=== PATIENT | female | born 1945 | race Caucasian/White ===

== ENCOUNTER 2017-01-28 13:08 | Emergency (ER) | payer MEDICARE, OTHER ==
[2017-01-28 13:24] VITALS: BP 132/74
--- NOTE | 2017-01-28 13:36 | ED Physician Documentation ---
History of Present Illness - Stated complaint Stated Complaint: SUTURE REMOVAL - Chief complaint Chief Complaint: Ext Problem - History obtained from History obtained from: Patient - History of Present Illness Improved by: nothing Worsened by: nothing - Additonal information Additional information: Patient is a 71-year-old female who states that she had sutures placed in the right knee approximately 11 days ago after a fall. No complaints. No pain. No drainage. No fevers. Here for suture removal Review of Systems Constitutional: denies: Fever PD PAST MEDICAL HISTORY - Past Medical History Past Medical History: Yes Cardiovascular: Hypertension, High cholesterol Other Past Medical History: rheumatoid arthritis - Present Medications Home Medications: Ambulatory Orders Medication Instructions Recorded Confirmed Atorvastatin [Lipitor] 5 mg DAILY 07/08/16 01/28/17 Hydrochloroquin 200 mg BID 07/08/16 01/28/17 Levothyroxine Sodium [Synthroid] 50 mcg PO DAILY 07/08/16 01/28/17 Losartan/Hydrochlorothiazide 1 tab DAILY 07/08/16 01/28/17 [Losartan-Hctz 100-25 mg Tab] Prednisone 5 mg PO DAILY 07/08/16 01/28/17 diltiaZEM CD [Cardizem Cd] 240 mg DAILY 07/08/16 01/28/17 oxyCODONE [Roxicodone] 1 tab TID 07/08/16 01/28/17 Abatacept [Orencia] 50 mg IV OAW 01/28/17 01/28/17 - Allergies Allergies/Adverse Reactions: Allergies Allergy/AdvReac Type Severity Reaction Status Date / Time etodolac Allergy Unknown Verified 07/08/16 14:20 metronidazole [From Flagyl] Allergy Unknown Verified 07/08/16 14:20 - Social History Does the pt smoke?: No Smoking Status: Never smoker PD ED PE NORMAL - Vitals Vital signs reviewed: Yes - General General: Alert and oriented X 3, No acute distress - Derm Derm: Warm and dry - Extremities Extremities: Other (R knee - [address] without signs of infection.) - Neuro Neuro: Alert and oriented X 3 Results - Vitals Vitals: Vital Signs - 24 hr 01/28/17 13:22 Temperature 36.8 C Heart Rate 71 Respiratory 18 Rate Blood Pressure 132/74 H O2 Saturation 98 Oxygen O2 Source Room air PD MEDICAL DECISION MAKING - ED course Complexity details: considered differential, d/w family ED course: Sutures removed in the emergency department. Tolerated well. Steri-Strips and bandage applied. No signs of infection. Warnings of infection and instructions on wound care given at bedside. Also counseled on how to minimize scarring. Patient counseled regarding signs and symptoms for which I believe and urgent re-evaluation would be necessary. Patient with good understanding of and agreement to plan and is comfortable going home at this time This document was made in part using voice recognition software. While efforts are made to proofread this document, sound alike and grammatical errors may occur. Departure - Departure Disposition: 01 Home, Self Care Clinical Impression: Visit for suture removal Condition: Good Instructions: ED Wound Check Sutr Remove No Infec Follow-Up: Amber Sharma MD [Primary Care Provider] - As Needed Comments: Return if you worsen. This should continue to heal over the next few days. Discharge Date/Time: 01/28/17 13:56
== END 2017-01-28 13:56 | disposition home or self-care (01) ==
LOC: ED 13:08
DX: S81.011D Laceration without foreign body, right knee, subsequent encounter (principal); W19.XXXD Unspecified fall, subsequent encounter
CPT/HCPCS: 99281; 99282

== ENCOUNTER 2017-01-30 14:20 | Emergency (ER) | payer MEDICARE, OTHER ==
[2017-01-30 14:37] VITALS: BP 125/83
--- NOTE | 2017-01-30 17:00 | ED Physician Documentation ---
History of Present Illness - Stated complaint Stated Complaint: WOUND CHECK - Chief complaint Chief Complaint: Wound - Additonal information Additional information: hx from patient 71 female knee lac was sutured then sutures were removed now wound had dehisced and is leaking serosanguinous fluid hx total knee on meds for RA which cause her to heal slowly Review of Systems Skin: reports: Laceration (s) PD PAST MEDICAL HISTORY - Past Medical History Cardiovascular: Hypertension, High cholesterol - Present Medications Home Medications: Ambulatory Orders Medication Instructions Recorded Confirmed Atorvastatin [Lipitor] 5 mg DAILY 07/08/16 01/28/17 Hydrochloroquin 200 mg BID 07/08/16 01/28/17 Levothyroxine Sodium [Synthroid] 50 mcg PO DAILY 07/08/16 01/28/17 Losartan/Hydrochlorothiazide 1 tab DAILY 07/08/16 01/28/17 [Losartan-Hctz 100-25 mg Tab] Prednisone 5 mg PO DAILY 07/08/16 01/28/17 diltiaZEM CD [Cardizem Cd] 240 mg DAILY 07/08/16 01/28/17 oxyCODONE [Roxicodone] 1 tab TID 07/08/16 01/28/17 Abatacept [Orencia] 50 mg IV OAW 01/28/17 01/28/17 - Allergies Allergies/Adverse Reactions: Allergies Allergy/AdvReac Type Severity Reaction Status Date / Time etodolac Allergy Unknown Verified 01/30/17 14:38 metronidazole [From Flagyl] Allergy Unknown Verified 01/30/17 14:38 - Social History Does the pt smoke?: No Smoking Status: Never smoker PD ED PE NORMAL - Vitals Vital signs reviewed: Yes - Extremities Extremities: Other (R knee - aged lac with heaing wound edges but dehsices, no joint capsule or patellar tendon visible, small amt clear fluid, no erythema, full ROM) Results - Vitals Vitals: Vital Signs - 24 hr 01/30/17 14:35 Temperature 37.3 C Heart Rate 75 Respiratory 14 Rate Blood Pressure 125/83 H O2 Saturation 100 Oxygen O2 Source Room air PD MEDICAL DECISION MAKING - ED course ED course: mi feliciano Departure - Departure Disposition: 01 Home, Self Care Clinical Impression: Wound dehiscence Condition: Good Comments: The wound cannot be re-sutured or glued at this time It will need to heal by secondary intention from the bottom up. Right now the wound does not appear infected - if the drainage become purulent or redness develops around the wound please come back
[2017-01-30] MEDS ORDERED: BENZOIN COMPOUND TOP ONE (17:59)
== END 2017-01-30 18:11 | disposition home or self-care (01) ==
LOC: ED 14:20
DX: T81.31XA Disruption of external operation (surgical) wound, not elsewhere classified, initial encounter (principal); Y83.8 Other surgical procedures as the cause of abnormal reaction of the patient, or of later complication, without mention of misadventure at the time of the procedure; I10 Essential (primary) hypertension
CPT/HCPCS: 99281; 99283

== ENCOUNTER 2017-08-22 17:12 | Emergency (ER) | payer MEDICARE, OTHER ==
[2017-08-22] MEDS ORDERED: cefTRIAXone 1 GM VIAL IM STA (18:08)
[2017-08-22] MEDS ORDERED: LIDOCAINE 1% 2 ML VIAL SUBQ ONE (18:08)
--- NOTE | 2017-08-22 18:08 | ED Physician Documentation ---
History of Present Illness - Stated complaint Stated Complaint: SP SX, LT LEG, INFECTION - Chief complaint Chief Complaint: Ext Problem - Additonal information Additional information: hx from pt 71 female slightly immunocompromised from her meds (orencia and prednsione) had mohs surgery for skin cancer a week ago in [place] on keflex wounds are now infected painful red swollen and some purlent dc from between sutures has appt with her surgical team tomorrow but told to come to [facility] for wound eval Review of Systems Constitutional: denies: Fever Skin: reports: Other (infected surgical wound) PD PAST MEDICAL HISTORY - Past Medical History Past Medical History: Yes Cardiovascular: Hypertension, High cholesterol Other Past Medical History: Squamous cell carcinoma - Past Surgical History Past Surgical History: Yes Derm: Skin cancer surgery - Present Medications Home Medications: Ambulatory Orders Medication Instructions Recorded Confirmed Atorvastatin [Lipitor] 5 mg DAILY 07/08/16 01/28/17 Hydrochloroquin 200 mg BID 07/08/16 01/28/17 Levothyroxine Sodium [Synthroid] 50 mcg PO DAILY 07/08/16 01/28/17 Losartan/Hydrochlorothiazide 1 tab DAILY 07/08/16 01/28/17 [Losartan-Hctz 100-25 mg Tab] diltiaZEM CD [Cardizem Cd] 240 mg DAILY 07/08/16 01/28/17 oxyCODONE [Roxicodone] 1 tab TID 07/08/16 01/28/17 predniSONE [Prednisone] 5 mg PO DAILY 07/08/16 01/28/17 Abatacept [Orencia] 50 mg IV OAW 01/28/17 01/28/17 Clindamycin [Cleocin] 300 mg PO Q6H 7 Days capsule 08/22/17 - Allergies Allergies/Adverse Reactions: Allergies Allergy/AdvReac Type Severity Reaction Status Date / Time etodolac Allergy Unknown Verified 01/30/17 14:38 metronidazole [From Flagyl] Allergy Unknown Verified 01/30/17 14:38 - Social History Does the pt smoke?: No Smoking Status: Never smoker PD ED PE NORMAL - Vitals Vital signs reviewed: Yes - Cardiac Cardiac: RRR - Respiratory Respiratory: No respiratory distress, Clear bilaterally - Extremities Extremities: Other (two pretibial sugical incisions closed with running sutures - surrounf erythema and warmth and some edema around to lower incisions, clear to cloudy dc from upper wound and dina purulent dc and slight fluctuance to lower wound, both cultured, MSV intact) Results - Vitals Vitals: Vital Signs - 24 hr 08/22/17 17:19 Temperature 37.2 C Heart Rate 76 Respiratory 18 Rate Blood Pressure 143/78 H O2 Saturation 98 Oxygen O2 Source Room air PD MEDICAL DECISION MAKING - ED course ED course: two infected pre-tibial surgical incisions in a slightly immunocompromised pt cultured drainage will add clinda for MRSA coverage (already on keflex) (and bactrim interacts with BP meds) ideally would remove some sutures and open wound to drain but she has running sutures and I am not certain how deep or extensive the undermining for these wound is - do not have wound vac etc available in the ER at night if 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 - so will leave sutures in just for overnight until she can see her interlocking installer tomorrow pharmacies closing soon so gave rocephin 1 g IM (24 hr coverage) and a PO clinda Departure - Departure Disposition: 01 Home, Self Care Clinical Impression: Infected incision Qualifiers: Encounter type: initial encounter Qualified Code(s): T81.4XXA - Infection following a procedure, initial encounter Condition: Good Instructions: ED Wound Infec After Surgery Prescriptions: Clindamycin [Cleocin] 300 mg PO Q6H 7 Days capsule Comments: Follow up with your dermatology team tomorrow for further wound care - the sutures will likely have to be removed Wound culture results will be available within the next 1-3 days and your interlocking installer can call the ER at to get the results
[2017-08-22] MEDS ORDERED: BACITRACIN OINT TOP ONE (18:20)
[2017-08-22] MEDS ORDERED: SULFAMETH/TRIMETH DS 800/160 MG TABLET PO STA (18:37)
[2017-08-22] MEDS ORDERED: CLINDAMYCIN 150 MG CAPSULE PO STA (18:39)
[2017-08-22 18:51] VITALS: BP 148/78
== END 2017-08-22 18:51 | disposition home or self-care (01) ==
LOC: ED 17:12
DX: T81.4XXA Infection following a procedure, initial encounter (principal); Z85.828 Personal history of other malignant neoplasm of skin; I10 Essential (primary) hypertension; E78.00 Pure hypercholesterolemia, unspecified
CPT/HCPCS: 87070; 87205; 96372; 99283; A9270

== ENCOUNTER 2017-09-05 19:10 | Emergency (ER) | payer MEDICARE, OTHER ==
[2017-09-05 19:22] VITALS: BP 136/72
--- NOTE | 2017-09-05 19:34 | ED Physician Documentation ---
PD HPI LOWER EXT INJURY - Stated complaint Stated Complaint: L SWOLLEN CALF - Chief complaint Chief Complaint: Ext Problem - History obtained from History obtained from: Patient - History of Present Illness PD HPI LOW EXT INJURY LOCATION: Other (She had Mohs surgery on the left leg, became infected and she has been on Cipro for about 2 weeks for Pseudomonas. The infection is getting better but she has had progressive swelling and pain below the knee on the left and was referred in by her natural history collections curator for DVT evaluation. She has never had a DVT or PE. She denies chest pain or trouble breathing.) Review of Systems Constitutional: reports: Reviewed and negative Nose: reports: Reviewed and negative Cardiac: denies: Chest pain / pressure, Palpitations Respiratory: reports: Reviewed and negative. denies: Dyspnea, Cough PD PAST MEDICAL HISTORY - Past Medical History Cardiovascular: Hypertension, High cholesterol - Past Surgical History Past Surgical History: Yes Derm: Skin cancer surgery - Present Medications Home Medications: Ambulatory Orders Medication Instructions Recorded Confirmed Atorvastatin [Lipitor] 5 mg DAILY 07/08/16 01/28/17 Hydrochloroquin 200 mg BID 07/08/16 01/28/17 Levothyroxine Sodium [Synthroid] 50 mcg PO DAILY 07/08/16 01/28/17 Losartan/Hydrochlorothiazide 1 tab DAILY 07/08/16 01/28/17 [Losartan-Hctz 100-25 mg Tab] diltiaZEM CD [Cardizem Cd] 240 mg DAILY 07/08/16 01/28/17 oxyCODONE [Roxicodone] 1 tab TID 07/08/16 01/28/17 predniSONE [Prednisone] 5 mg PO DAILY 07/08/16 01/28/17 Abatacept [Orencia] 50 mg IV OAW 01/28/17 01/28/17 Clindamycin [Cleocin] 300 mg PO Q6H 7 Days capsule 08/22/17 - Allergies Allergies/Adverse Reactions: Allergies Allergy/AdvReac Type Severity Reaction Status Date / Time etodolac Allergy Unknown Verified 01/30/17 14:38 metronidazole [From Flagyl] Allergy Unknown Verified 01/30/17 14:38 - Social History Does the pt smoke?: No Smoking Status: Never smoker PD ED PE NORMAL - Vitals Vital signs reviewed: Yes - General General: Alert and oriented X 3, No acute distress - Extremities Extremities: Other (There is 2 healing sites on the left lower extremity, both in the anterior left infante, one upper and one lower. She does have calf tenderness below the knee and some swelling with venous stasis changes.) - Neuro Neuro: Alert and oriented X 3, Normal speech Results - Vitals Vitals: Vital Signs - 24 hr 09/05/17 19:19 Temperature 35.9 C L Heart Rate 86 Respiratory 18 Rate Blood Pressure 136/72 H O2 Saturation 99 Oxygen O2 Source Room air - Rads (name of study) LLE DVt scan Radiology: Prelim report reviewed (no DVt, +ocampo's cyst) Departure - Departure Disposition: Home, Self Care Clinical Impression: Pain of lower extremity Qualifiers: Laterality: left Qualified Code(s): M79.605 - Pain in left leg Clinical Impression: (Ruled Out): Deep vein thrombosis Condition: Good Record reviewed to determine appropriate education?: Yes Instructions: ED Cyst Ocampo Comments: Call your doctor to arrange a follow-up appointment, make the next available appointment. In the interim, return anytime if worse or if new symptoms develop. Your blood pressure was elevated today on check into the emergency department. This does not mean that you have hypertension, it is a common phenomenon to come to the emergency department and have elevated blood pressure. I recommend that you see your primary care physician within the week to have it rechecked when you are feeling better. Discharge Date/Time: 09/05/17 20:31
--- NOTE | 2017-09-05 20:31 | Ultrasound Report ---
EXAM: LEFT LOWER EXTREMITY VENOUS ULTRASOUND EXAM DATE: 09/05/2017 08:19 PM. CLINICAL HISTORY: Left lower extremity swelling. COMPARISON: None. TECHNIQUE: Real-time sonographic vascular imaging was performed by the hydraulic technician through the lower extremity utilizing both color-flow and Doppler spectral analysis. Multiple hr representative static latisha ges were saved for review. FINDINGS: Common Femoral Vein (CFV): Normal. CFV-GSV Junction: Normal. Profunda Femoral Vein (PFV): Normal. Femoral Vein (FV) Prox: Normal. Femoral Vein (FV) Mid: Normal. Femoral Vein (FV) Dist: Normal. Popliteal Vein: Normal. Posterior Tibial Veins: Limited visualization. Peroneal Veins: Normal. Other: Left Ocampo's cyst measuring 3.3 x 1.3 x 3.7 cm. IMPRESSION: No evidence for deep venous thrombosis. Limited visualization of the left posterior tibia l veins. Left Ocampo's cyst measuring 3.3 x 1.3 x 3.7 cm. [facility] Referring Provider Line: [phone] SITE ID: [id number]
== END 2017-09-05 20:31 | disposition home or self-care (01) ==
LOC: ED 19:10
DX: M79.605 Pain in left leg (principal); I10 Essential (primary) hypertension; E78.00 Pure hypercholesterolemia, unspecified
CPT/HCPCS: 99283

== ENCOUNTER 2018-04-10 11:47 | Emergency (ER) | payer MEDICARE, OTHER ==
[2018-04-10 11:56] VITALS: BP 151/72
--- NOTE | 2018-04-10 14:05 | ED Physician Documentation ---
History of Present Illness - Stated complaint Stated Complaint: LOWER LF LEG SWELLING - Chief complaint Chief Complaint: Wound - Additonal information Additional information: hx from pt 72 f skin tear L pretib - hit leg on furniture in dark at night now puffy red and painful Review of Systems Musculoskeletal: reports: Extremity pain, Extremity swelling PD PAST MEDICAL HISTORY - Past Medical History Cardiovascular: Hypertension, High cholesterol Musculoskeletal: Rheumatoid arthritis - Past Surgical History Past Surgical History: Yes Derm: Skin cancer surgery - Present Medications Home Medications: Ambulatory Orders Medication Instructions Recorded Confirmed Atorvastatin [Lipitor] 5 mg DAILY 07/08/16 01/28/17 Hydrochloroquin 200 mg BID 07/08/16 01/28/17 Levothyroxine Sodium [Synthroid] 50 mcg PO DAILY 07/08/16 01/28/17 Losartan/Hydrochlorothiazide 1 tab DAILY 07/08/16 01/28/17 [Losartan-Hctz 100-25 mg Tab] diltiaZEM CD [Cardizem Cd] 240 mg DAILY 07/08/16 01/28/17 oxyCODONE [Roxicodone] 1 tab TID 07/08/16 01/28/17 predniSONE [Prednisone] 5 mg PO DAILY 07/08/16 01/28/17 Abatacept [Orencia] 50 mg IV OAW 01/28/17 01/28/17 Clindamycin [Cleocin] 300 mg PO Q6H 7 Days capsule 08/22/17 Cephalexin [Keflex] 500 mg PO Q6H #28 capsule 04/10/18 - Allergies Allergies/Adverse Reactions: Allergies Allergy/AdvReac Type Severity Reaction Status Date / Time etodolac Allergy Unknown Verified 04/10/18 11:55 metronidazole [From Flagyl] Allergy Unknown Verified 04/10/18 11:55 - Social History Does the pt smoke?: No Smoking Status: Never smoker Does the pt drink ETOH?: Yes Does the pt have substance abuse?: No - Immunizations Immunizations are current?: Yes - POLST Patient has POLST: No PD ED PE NORMAL - Vitals Vital signs reviewed: Yes - Extremities Extremities: Other (L pretib with skin tear, mostly apprximated, 2 small gpas, no purueltn drainage but cultured some serouds drainage, STS and TTP s crepitus or abscess, MSV intact) Results - Vitals Vitals: Vital Signs - 24 hr 10/02/18 11:52 Temperature 36.8 C Heart Rate 74 Respiratory 16 Rate Blood Pressure 151/72 H O2 Saturation 97 Oxygen O2 Source Room air PD MEDICAL DECISION MAKING - ED course ED course: local wound care, rx keflex, rec wound care clinic - pt has been for other wounds - Sepsis Event Vital Signs: Vital Signs - 24 hr 04/10/18 11:52 Temperature 36.8 C Heart Rate 74 Respiratory 16 Rate Blood Pressure 151/72 H O2 Saturation 97 Oxygen O2 Source Room air Departure - Departure Disposition: 01 Home, Self Care Clinical Impression: Infected wound Condition: Good Instructions: ED Wound Care Follow-Up: Amber Sharma MD [Primary Care Provider] - (for a referral to wound care) Prescriptions: Cephalexin [Keflex] 500 mg PO Q6H #28 capsule Comments: May leave this dressing in place for 7-10 days Take the antibiotic as prescribed The ER will call you if the culture indicates a need to change antibiotics Ask your PMD for a referral to the wound care clinic
== END 2018-04-10 14:18 | disposition home or self-care (01) ==
LOC: ED 11:47
DX: S81.812A Laceration without foreign body, left lower leg, initial encounter (principal); L08.9 Local infection of the skin and subcutaneous tissue, unspecified; W22.03XA Walked into furniture, initial encounter; I10 Essential (primary) hypertension; E78.00 Pure hypercholesterolemia, unspecified
CPT/HCPCS: 87070; 87205; 99283

== ENCOUNTER 2018-10-19 12:59 | Outpatient (CLI) | payer MEDICARE, OTHER ==
--- NOTE | 2018-10-19 15:18 | XRAY Report ---
Reason: PAIN OF CERVICAL FACET JOINT,NECK PAIN Procedure Date: 10/19/2018 Accession Number: [id number] / [id number] Procedure: XR - Cervical Spine 2 View CPT Code: FULL RESULT: EXAM: CERVICAL SPINE RADIOGRAPHY EXAM DATE: 10/19/2018 02:08 PM. CLINICAL HISTORY: Pain of cervical facet joint, neck pain. COMPARISONS: None. TECHNIQUE: 3 views. FINDINGS: Alignment: Limited assessment of the atlantooccipital relationship due to suboptimal odontoid view, best possible images are obtained. Minimal 1 mm anterolisthesis of C7 on T1. No scoliosis. Bones: The cervical vertebral bodies and posterior elements are well visualized from the skull base through C7-T1. No fractures or bone lesions. Disks: Multilevel loss of disk space height which is most pronounced at C5-C7. Facets: Moderate multilevel facet arthropathy. Soft Tissues: Normal. No prevertebral soft tissue swelling. The visualized lung apices are clear. IMPRESSION: Degenerative changes. Suboptimal odontoid view. [facility]
== END 2018-10-19 13:00 | disposition home or self-care (01) ==
LOC: DI 12:59
PROVIDERS: ATTEND Physical Medicine & Rehabilitation
DX: M50.31 Other cervical disc degeneration, high cervical region (principal); M47.9 Spondylosis, unspecified
CPT/HCPCS: 72040

== ENCOUNTER 2018-11-26 12:20 | Emergency (ER) | payer MEDICARE, OTHER ==
[2018-11-26] MEDS ORDERED: CIPROFLOXACIN 250 MG TABLET PO STA (12:56)
--- NOTE | 2018-11-26 12:59 | ED Physician Documentation ---
PD HPI LOWER EXT INJURY - Stated complaint Stated Complaint: LEG SWOLLEN/REDNESS - Chief complaint Chief Complaint: Ext Problem - History obtained from History obtained from: Patient - History of Present Illness PD HPI LOW EXT INJURY LOCATION: Left (73-year-old woman with rheumatoid arthritis on immunologic suppressive agents presents with left leg cellulitis. Is been going on for about a week. There was a little skin tear on the anterior left infante and another little wound on the calf. She is been having increased pain in the infante with some drainage. No fevers or chills. 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 : None HEENT: None Psych: None Musculoskeletal: Osteoarthritis, Rheumatoid arthritis Derm: None - Past Surgical History Past Surgical History: Yes Ortho: Knee replacement, Rotator cuff repair, Carpal Tunnel surgery Derm: Skin cancer surgery - Present Medications Home Medications: Ambulatory Orders Medication Instructions Recorded Confirmed Atorvastatin [Lipitor] 5 mg DAILY 07/08/16 01/28/17 Hydrochloroquin 200 mg BID 07/08/16 01/28/17 Levothyroxine Sodium [Synthroid] 50 mcg PO DAILY 07/08/16 01/28/17 Losartan/Hydrochlorothiazide 1 tab DAILY 07/08/16 01/28/17 [Losartan-Hctz 100-25 mg Tab] diltiaZEM CD [Cardizem Cd] 240 mg DAILY 07/08/16 01/28/17 oxyCODONE [Roxicodone] 1 tab TID 07/08/16 01/28/17 predniSONE [Prednisone] 5 mg PO DAILY 07/08/16 01/28/17 Abatacept [Orencia] 50 mg IV OAW 01/28/17 01/28/17 Clindamycin [Cleocin] 300 mg PO Q6H 7 Days capsule 08/22/17 Cephalexin [Keflex] 500 mg PO Q6H #28 capsule 04/10/18 Ciprofloxacin HCl [Cipro] 500 mg PO BID #20 tablet 11/26/18 - Allergies Allergies/Adverse Reactions: Allergies Allergy/AdvReac Type Severity Reaction Status Date / Time etodolac Allergy Unknown Verified 04/10/18 11:55 metronidazole [From Flagyl] Allergy Unknown Verified 11/26/18 12:46 - Social History Does the pt smoke?: No Smoking Status: Never smoker Does the pt drink ETOH?: Yes Does the pt have substance abuse?: No - Immunizations Immunizations are current?: Yes - POLST Patient has POLST: No PD ED PE NORMAL - Vitals Vital signs reviewed: Yes - General General: Alert and oriented X 3, No acute distress - Extremities Extremities: Other (Left leg is without calf tenderness or swelling. She does have some cellulitic change to the anterior infante with a healing skin tear and a little vesicle which were cultured during exam.) - Neuro Neuro: Alert and oriented X 3, Normal speech Results - Vitals Vitals: Vital Signs - 24 hr 11/26/18 12:44 Temperature 37.2 C Heart Rate 83 Respiratory 20 Rate Blood Pressure 144/73 H O2 Saturation 99 Oxygen O2 Source Room air Departure - Departure Disposition: 01 Home, Self Care Clinical Impression: Cellulitis of left leg Condition: Good Record reviewed to determine appropriate education?: Yes Instructions: Cellulitis Dc Prescriptions: Ciprofloxacin HCl [Cipro] 500 mg PO BID #20 tablet Comments: We are performing a wound culture, the results should be done in 48-72 hours. If antibiotic change is necessary we will call you. Return if worse in the mean time, especially if you develop increased pain, fevers, cannot keep down the medication. Otherwise follow-up with your physician in approximately 2-3 days.
[2018-11-26 13:06] VITALS: BP 137/69
== END 2018-11-26 13:08 | disposition home or self-care (01) ==
LOC: ED 12:20
DX: L03.116 Cellulitis of left lower limb (principal); M06.9 Rheumatoid arthritis, unspecified; Z79.899 Other long term (current) drug therapy; I10 Essential (primary) hypertension
CPT/HCPCS: 87070; 87205; 99283; A9270

== ENCOUNTER 2020-12-26 08:00 | Outpatient (CLI) | payer MEDICARE, OTHER | END 2020-12-26 08:01 | disposition home or self-care (01) | LOC: LAB.S 08:00 | PROVIDERS: ATTEND Physician Assistant | DX: N39.0 Urinary tract infection, site not specified (principal) | CPT/HCPCS: 87086; 87181 ==

== ENCOUNTER 2021-01-07 08:00 | Outpatient (CLI) | payer MEDICARE, OTHER | END 2021-01-07 23:59 | disposition home or self-care (01) | LOC: LAB.S 08:00 | PROVIDERS: ATTEND Physician Assistant Medical | DX: N39.0 Urinary tract infection, site not specified (principal); R30.0 Dysuria | CPT/HCPCS: 87077; 87086; 87181 ==

== ENCOUNTER 2022-04-02 08:00 | Outpatient (CLI) | payer MEDICARE, OTHER | END 2022-04-02 23:59 | disposition home or self-care (01) | LOC: LAB 08:00 | PROVIDERS: ATTEND Registered Nurse | DX: T14.8XXA Other injury of unspecified body region, initial encounter (principal) | CPT/HCPCS: 87070; 87077; 87181; 87205 ==

== ENCOUNTER 2022-05-07 08:00 | Outpatient (CLI) | payer MEDICARE, OTHER | END 2022-05-07 23:59 | disposition home or self-care (01) | LOC: LAB.S 08:00 | PROVIDERS: ATTEND Physician Assistant Medical | DX: L03.115 Cellulitis of right lower limb (principal) | CPT/HCPCS: 87070; 87077; 87181; 87205 ==

== ENCOUNTER 2024-02-20 19:55 | Emergency (ER) | payer MEDICARE, OTHER ==
--- NOTE | 2024-02-20 20:39 | ED Physician Documentation ---
History of Present Illness - Stated complaint Stated Complaint: HIGH BP - Chief complaint Chief Complaint: General - Additonal information Additional information: 78-year-old female with history of hypertension, hypercholesterolemia, thyroid disease, osteoarthritis, rheumatoid arthritis presents emergency department for concerns of severe headache and hypertension. Patient says that in December she woke suddenly with a odd flushing sensation and severe headache. She checked her blood pressure and it was systolically greater than 200 she tried to get her blood pressure to resolve without any alleviation of pain or resolve of her hypertension she went to the emergency department in [facility]. They did a full workup and they did not find any acute abnormal findings they did not do a head CT. Tonight as well as last night she had a repeat of the sensation in symptoms she felt a sudden onset of weird sensation in her left throat that radiated to her head and checked her blood pressure and systolic was greater than 200 again. She has no chest pain or shortness of breath no nausea vomiting no other concerning emergent symptoms no new focal neurological deficits. 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 : None HEENT: None Psych: None Musculoskeletal: Osteoarthritis, Rheumatoid arthritis Derm: None - Past Surgical History Past Surgical History: Yes Ortho: Knee replacement, Rotator cuff repair, Carpal Tunnel surgery Derm: Skin cancer surgery - Present Medications Home Medications: Ambulatory Orders Medication Instructions Recorded Confirmed Atorvastatin [Lipitor] 5 mg DAILY 07/08/16 01/28/17 Hydrochloroquin 200 mg BID 07/08/16 01/28/17 Levothyroxine Sodium [Synthroid] 50 mcg PO DAILY 07/08/16 01/28/17 Losartan/Hydrochlorothiazide 1 tab DAILY 07/08/16 01/28/17 [Losartan-Hctz 100-25 mg Tab] [id number] CD [Cardizem Cd] 240 mg DAILY 07/08/16 01/28/17 oxyCODONE [Roxicodone] 1 tab TID 07/08/16 01/28/17 predniSONE [Prednisone] 5 mg PO DAILY 07/08/16 01/28/17 Abatacept [Orencia] 50 mg IV OAW 01/28/17 01/28/17 Clindamycin [Cleocin] 300 mg PO Q6H 7 Days capsule 08/22/17 cephALEXin [Keflex] 500 mg PO Q6H #28 capsule 04/10/18 Ciprofloxacin HCl [Cipro] 500 mg PO BID #20 tablet 11/26/18 - Allergies Allergies/Adverse Reactions: Allergies Allergy/AdvReac Type Severity Reaction Status Date / Time etodolac Allergy Unknown Verified 02/20/24 20:15 metronidazole [From Flagyl] Allergy Unknown Verified 02/20/24 20:15 - Social History Does the pt smoke?: No Smoking Status: Never smoker Does the pt drink ETOH?: Yes Does the pt have substance abuse?: No - Immunizations Immunizations are current?: Yes - POLST Patient has POLST: No PD ED PE NORMAL - Vitals Vital signs reviewed: Yes - General General: Alert and oriented X 3, No acute distress, Well developed/nourished - HEENT HEENT: Atraumatic, PERRL, EOMI - Neck Neck: Supple, no meningeal sign, No bony TTP - Cardiac Cardiac: RRR, No murmur, No gallop, Strong equal pulses - Respiratory Respiratory: No respiratory distress, Clear bilaterally - Abdomen Abdomen: Normal bowel sounds, Soft, Non tender, No organomegaly - Derm Derm: Other (old brusing to right portion of the face mainly to forehead and around eye) - Neuro Neuro: Alert and oriented X 3, 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, No motor deficit, No sensory deficit, Normal speech Eye Opening: Spontaneous Motor: Obeys Commands Verbal: Oriented GCS Score: 15 - Psych Psych: Normal mood Results - Vitals Vitals: Oxygen O2 Source Room air - Labs Labs: Laboratory Tests 02/20/24 02/20/24 02/20/24 20:40 20:40 20:40 WBC 8.3 RBC 3.48 L Hgb 11.0 L Hct 34.1 L MCV 98.0 MCH 31.6 H MCHC 32.3 RDW 15.3 H Plt Count 247 MPV 9.2 Neut # (Auto) 4.8 Lymph # (Auto) 2.6 Bucks # (Auto) 0.7 Eos # (Auto) 0.1 Baso # (Auto) 0.0 Absolute Nucleated RBC 0.00 Nucleated RBC % 0.0 Sodium 137 Potassium 4.3 Chloride 103 Carbon Dioxide 25 Anion Gap 9.0 BUN 25 H Creatinine 1.1 Estimated GFR (MDRD) 48 L Glucose 93 Calcium 10.2 Magnesium 1.5 L Total Bilirubin 0.5 AST 23 ALT 17 Alkaline Phosphatase 74 Troponin I High Sens 6.2 Total Protein 6.5 Albumin 4.2 Globulin 2.3 Albumin/Globulin Ratio 1.8 Lipase 21 - Rads (name of study) Head CT without Relevant Findings:: Final report received, EMP independent interpretation of test, Other (No intracranial abnormalities or findings.) Angio head and neck CT Relevant Findings:: Final report received, EMP independent interpretation of test, Other (No significant intracranial arterial abnormality no arterial abnormality of the head or neck left thyroid nodule measuring 3.1 cm.) PD Medical Decision Making - ED course ED course: 78-year-old female presents emergency department for severe headache and an odd sensation of the left of her neck as well as hypertension. She has no focal neurological deficits NIH score 0 given patient's age and past medical history as well as patient's severe headache I went ahead with a head CT as well as a CT head neck angio. Head CT did not reveal any acute abnormal findings or abnormalities as well as CT head neck angio no acute arterial abnormalities or findings. Labs were also complete for further evaluation she does not have an elevated troponin EKG does not show any acute ST elevations or abnormalities. Patient's blood pressure eventually came down on its own she says that her head pain is also feeling significantly better and denies any need for Tylenol or ibuprofen. Patient was told the results and she is very relieved she is told to follow-up with her primary care provider for further evaluation of this head pain that she has been experiencing with hypertension. Strict return precautions given all questions answered patient safe for discharge at this time. Departure - Departure Disposition: 01 Home, Self Care Clinical Impression: Headache Hypertension Qualifiers: Hypertension type: unspecified Qualified Code(s): I10 - Essential (primary) hypertension Instructions: ED Headache Tension Comments: Thank you for trusting us with your care. We have completed a head CT as well as a head and neck CT angio and not seeing any acute abnormal findings at this point in time. Please follow-up with your primary care provider as you may need to adjust medications to help better manage your blood pressure please come back to the ER if you are having any weakness on one side your body difficulty speaking, confusion or any other neurological changes or deficits. Forms: PCP List Discharge Date/Time: 02/20/24 23:31
[2024-02-20 20:45] LABS: BASOPHILS % (AUTO) 0.4 %; EOSINOPHILS # (AUTO) 0.1 10^3/uL (0.0-0.7); EOSINOPHILS % (AUTO) 1.2 %; HCT - HEMATOCRIT 34.1 % (37.0-47.0); LYMPHOCYTES # (AUTO) 2.6 10^3/uL (1.5-3.5); LYMPHOCYTES % (AUTO) 30.9 %; MEAN CORPUSCULAR HEMOGLOBIN 31.6 pg (27.0-31.0); MEAN CORPUSCULAR HGB CONC 32.3 g/dL (32.0-36.0); MEAN PLATELET VOLUME 9.2 fL (7.9-10.8); MONOCYTES # (AUTO) 0.7 10^3/uL (0.0-1.0); MONOCYTES % (AUTO) 8.4 %; NEUTROPHILS # (AUTO) 4.8 10^3/uL (1.5-6.6); NEUTROPHILS % (AUTO) 57.2 %; PLT - PLATELET COUNT 247 10^3/uL (130-450); RED BLOOD COUNT 3.48 10^6/uL (4.20-5.40); RED CELL DISTRIBUTION WIDTH 15.3 % (12.0-15.0); WHITE BLOOD COUNT 8.3 x10^3/uL (4.8-10.8)
[2024-02-20 21:00] LABS: ALBUMIN 4.2 g/dL (3.2-5.5); ALBUMIN/GLOBULIN RATIO 1.8 (1.0-2.2); BILIRUBIN,TOTAL 0.5 mg/dL (0.2-1.0); CALCIUM 10.2 mg/dL (8.5-10.3); CREATININE 1.1 mg/dL (0.6-1.3); MAGNESIUM 1.5 mg/dL (1.7-2.3); POTASSIUM 4.3 mmol/L (3.5-4.5); TOTAL PROTEIN 6.5 g/dL (6.4-8.9)
[2024-02-20] MEDS ORDERED: iohexoL-300 100 ML VIAL ONE (21:09)
[2024-02-20 22:22] VITALS: BP 137/70; O2SAT 98
[2024-02-20] MEDS: iohexoL-300 100 ML VIAL IVP ONE (22:36)
--- NOTE | 2024-02-20 23:06 | CT Report ---
PROCEDURE: Head WO INDICATIONS: severe head pain with left neck pain TECHNIQUE: Noncontrast 4.5 mm thick angled axial sections acquired from the foramen magnum to the vertex. For r adiation dose reduction, the following was used: automated exposure control, adjustment of mA and/or kV according to patient size. COMPARISON: None. FINDINGS: Image quality: Excellent. CSF spaces: Basal cisterns are patent. No extra-axial fluid collections. Ventricles are normal in size and shape. Brain: No midline shift. No intracranial masses or hemorrhage. Elder-white matter interface is norm al. Skull and face: Calvarium and visualized facial bones are intact, without suspicious lesions. Sinuses: Visualized sinuses and mastoids are clear. IMPRESSION: No acute intracranial pathology. Reviewed by: Yang Boothe MD on 02/20/2024 11:04 PM PDT Approved by: Yang Boothe MD on 02/20/2024 11:04 PM PDT Station ID: [id number]
--- NOTE | 2024-02-20 23:08 | CT Report ---
PROCEDURE: Angio Head/Neck INDICATIONS: left neck pain with headache TECHNIQUE: After the administration of intravenous contrast, 1 mm thick sections acquired from the aortic arch t hrough the [place]. 3-dimensional uagxgam-cnlpryxpg-xnmbybfcam (MIP) and/or volume renderin g reformats were acquired of the central intracranial vasculature and neck separately. For radiation dose reduction, the following was used: automated exposure control, adjustment of mA and/or kV acco rding to patient size. CONTRAST: Omni 300, 80mls COMPARISON: None. FINDINGS: Image quality: Diagnostic. HEAD CT: No significant change from earlier CT. HEAD CT ANGIOGRAPHY: Anterior circulation: Intracranial internal carotid arteries are normal in size and flow. The flow within the paired anterior cerebral arteries is normal and symmetric. The flow within the middle cer ebral arteries is normal and symmetric. The anterior communicating artery is seen. No aneurysms are seen. Posterior circulation: Visualized portions of the vertebral arteries demonstrate normal caliber, and join to form a normal appearing basilar artery. Flow within the posterior cerebral arteries is norm al and symmetric. No aneurysms are seen. NECK CT ANGIOGRAPHY: Carotid system: The great vessels demonstrate a conventional anatomy as they arise from the aortic a rch. The origins of the common carotid arteries appear patent. The common carotid arteries demonstr ate normal caliber and courses. The bifurcation regions are both widely patent. The internal caroti d arteries demonstrate normal calibers and courses. Posterior circulation: The origins of the vertebral arteries both appear widely patent. The more gutierrez perior extracranial portions of both vertebral arteries also demonstrate normal courses and calibers. They join to form a normal appearing basilar artery. Soft tissues: Visualized neck soft tissues demonstrate no suspicious abnormalities. Right thyroid lo bectomy. Left thyroid lobe nodule measures 3.1 cm. Bones: No suspicious bony lesions. Visualized cervical spine appears normally aligned. IMPRESSION: No significant intracranial arterial abnormality is seen. No significant abnormality is seen within the arteries of the neck. Left thyroid nodule measuring 3.1 cm. Recommend dedicated outpatient ultrasound, if not performed in the past. The estimate of stenosis included in the report of the imaging study was calculated using the NASCET method Reviewed by: Yang Boothe MD on 02/20/2024 11:06 PM PDT Approved by: Yang Boothe MD on 02/20/2024 11:06 PM PDT Station ID: [id number]
== END 2024-02-20 23:31 | disposition home or self-care (01) ==
LOC: ED 19:55
DX: R51.9 Headache, unspecified (principal); I10 Essential (primary) hypertension
CPT/HCPCS: 36415; 70450; 70496; 70498; 80053; 83690; 83735; 84484; 85025; 99284; Q9967

== ENCOUNTER 2024-03-26 08:00 | Outpatient (CLI) | payer MEDICARE, OTHER | END 2024-03-26 23:59 | disposition home or self-care (01) | LOC: LAB.N 08:00 | PROVIDERS: ATTEND Registered Nurse | DX: N30.00 Acute cystitis without hematuria (principal) | CPT/HCPCS: 87086 ==